=== PATIENT | female | born 1945 | race Caucasian/White ===

== ENCOUNTER → 2025-06-07 07:50 | Outpatient (CLI) | payer OTHER, SELFPAY ==
--- NOTE | 2025-06-07 07:54 | DI.US.S_ITS ---
PROCEDURE: US ABDOMEN LIMITED INDICATIONS: Hx autoimmune biliary cirrhosis, needs U/S Q 6 mo TECHNIQUE: Real-time scanning was performed of the abdominal and retroperitoneal organs, with image documentation. COMPARISON: None. FINDINGS: Liver: Liver is normal in size and heterogeneity in echotexture without visualized mass. Gallbladder: No gallstones. No wall thickening. No pericholecystic edema. Negative sonographic Byers's sign. Biliary ducts: Intrahepatic bile ducts are non-dilated. Extrahepatic bile duct caliber measures 3.0 mm. Normal is 6-7 mm or less in diameter, or 10 mm or less post-cholecystectomy. Pancreas: Visualized portions of the pancreas are sonographically normal. Miscellaneous: No free abdominal fluid. IMPRESSION: Coarse echotexture within the liver consistent with cirrhotic change. No mass lesion or biliary distension found. Dictated by: Santino Angel M.D. on 06/07/2025 at 9:59 Approved by: Santino Angel M.D. on 06/07/2025 at 10:01
== END ==
PROVIDERS: PCP Family Medicine; Referring Provider Family Medicine; Visit Provider Family Medicine
DX: K74.5 Biliary cirrhosis, unspecified (principal)
CPT/HCPCS: 76705